=== PATIENT | female | born 1970 | race Caucasian/White ===

== ENCOUNTER → 2023-12-19 02:36 | Outpatient (CLI) | payer OTHER, SELFPAY ==
--- NOTE | 2023-12-19 08:30 | DI.MRI_ITS ---
Exam(s) MR LOWER JOINT RT WO EXAM: MR LOWER JOINT RT WO CLINICAL HISTORY: Lacy's cyst right knee M66.0 RUPTURE POPLITEAL CYST. TECHNIQUE: Multiplanar multisequence MRI was performed. COMPARISON: Exam interpreted without benefit of prior plain films. MR MR KNEE RT WO CONTRAST from 06/25/2019 US US EXTREMITY LOWER VENOUS RT from 05/25/2023 FINDINGS: BONES: There is no fracture or contusion pattern. Multiple degenerative cysts in the proximal tibia . Single cyst in proximal fibula. JOINTS: A small joint effusion is present. Articular cartilage: Patellofemoral joint: Denuding of the patellar cartilage extending down to and involving underlying bone.. It edema and degenerative subchondral cysts are present. Medial femoral tibial joint: Severe narrowing of the cartilage, extending down to involving underlyi ng bone. Lateral femoral tibial joint: Severe narrowing of cartilage extending down to bone in the lateral ti bial plateau. LIGAMENTS: Anterior Cruciate: Unremarkable. Posterior Cruciate: Unremarkable. Medial Collateral:Unremarkable. Lateral Collateral ligament complex: Unremarkable. TENDONS: Extensor mechanism: Unremarkable. Medial retinaculum: Unremarkable. Lateral retinaculum: Unremarkable. Popliteus: Unremarkable. MENISCI: The medial meniscus extremely diminutive and peripherally displaced horizontal tear through body. Po sterior horn extremely diminutive. Findings have significantly worsened compared with the previous exam. The lateral meniscus is extremely diminutive in the body and posterior horn. The findings have signi ficantly worsened when compared with the previous exam. MUSCLES: Edema within superior aspect of medial head of gastrocnemius muscle. SOFT TISSUES: Lacy's cyst with large inferior loculation measuring 15 cm in length by 8 cm AP by 6 c m transverse. It is located adjacent to the medial head of the gastrocnemius muscle. Lacy's cyst w as demonstrated on prior ultrasound however it has increased in size. Edema in the subcutaneous fat. Heterogeneous material within could represent proteinaceous debris or sequela of prior hemorrhage. IMPRESSION: Large Lacy's cyst with large inferior loculation on containing on debris which may be result of prio r hemorrhage. Severe degenerative changes of the femoral tibial and patellofemoral joints with cartilage thinning e xtending down to bone. Severe degenerative changes in the menisci. No ligament or tendon tear. DATA REPOSITORY:
== END ==
PROVIDERS: PCP Internal Medicine; Visit Provider Student in an Organized Health Care Education/Training Program
DX: M66.0 Rupture of popliteal cyst (principal)
CPT/HCPCS: 73721

== ENCOUNTER 2024-03-19 11:44 | Outpatient (CLI) | payer OTHER, SELFPAY ==
--- NOTE | 2024-03-19 09:32 | DI.RAD_ITS ---
Exam(s) XR STANDING ALIGNMENT XR KNEE RT 1V EXAM: XR STANDING ALIGNMENT and XR knee RT 1 V CLINICAL HISTORY: surgical planning. TECHNIQUE: 2D digital imaging was performed. Five images were obtained. COMPARISON: MR MR LOWER JOINT RT WO from 12/19/2023 FINDINGS: BONES: The hips are well maintained. Subchondral cysts are seen in the proximal right tibia. There is joint space narrowing seen predominantly in the femoral tibial joint in the right knee. There is a joint effusion present. In the left knee, there is joint space narrowing and osteophytes particula rly in the medial femoral tibial joint. The ankles are well maintained.There is no significant leg l ength discrepancy. SOFT TISSUE: Normal. IMPRESSION: Arthrosis of the knees bilaterally. Right knee joint effusion. DATA REPOSITORY: RADIATION DOSE DELIVERED:
== END 2024-03-19 11:45 | disposition home or self-care (01) ==
LOC: DIORS 11:44
PROVIDERS: PCP Internal Medicine; Visit Provider Physician Assistant
DX: M17.0 Bilateral primary osteoarthritis of knee (principal)
CPT/HCPCS: 73560; 77073

== ENCOUNTER 2024-04-20 01:47 | Outpatient (CLI) | payer OTHER, SELFPAY ==
[2024-04-20 10:34] LABS: HCT 37.8 % (36.0-46.0); MCH 30.8 pg (27.0-33.0); MCHC 31.7 % (32.0-36.0); MCV 97 fL (80-95); MPV 9.8 fL (8.0-11.0); Platelet Count 321 10^3/uL (130-400); RBC 3.89 10^6/uL (3.93-5.22); RDW 15.8 % (11.7-14.6); RDW-SD 56.4 fL; WBC 11.73 10^3/uL (4.4-10.8)
[2024-04-20 10:55] LABS: Anion Gap 9.1 mmol/L (3-11); BUN 10 mg/dL (7-18); CO2 28.9 mmol/L (21.0-32.0); CREATININE 1.1 mg/dL (0.55-1.02); Calcium 9.1 mg/dL (8.5-10.1); Chloride 102 mmol/L (98-107); Estimated GFR 60.46 (mL/min/1.73m2); Glucose 145 mg/dL (74-106); Potassium 4.1 mmol/L (3.5-5.1); Sodium 140 mmol/L (136-145)
== END 2024-04-20 01:48 | disposition home or self-care (01) ==
LOC: LBO 01:47
PROVIDERS: PCP Internal Medicine; Visit Provider Student in an Organized Health Care Education/Training Program
DX: M17.11 Unilateral primary osteoarthritis, right knee (principal); Z01.818 Encounter for other preprocedural examination
CPT/HCPCS: 36415; 80048; 85027

== ENCOUNTER 2024-05-02 06:59 | Day surgery (SDC) | payer OTHER, SELFPAY ==
[2024-05-02] VITALS (27 sets, daily range): BP systolic 92–138; BP diastolic 41–63; PULSE 61–92; RESP 10–18; TEMP 36–36.4; O2SAT 93–100; BMI 28.8
--- NOTE | 2024-05-02 06:47 | W.ANESPRE ---
General Info Date of Service Date Performed: 05/02/24 Height: 5 ft 7.75 in Weight: 85.275 kg Body Mass Index (BMI): 28.8 Surgical Procedure: Operation Date: 05/02/24 09:10 Proposed Procedure Side Surgeon p Knee Total Arthroplasty, Cemented CR Right Issac Arango MD Meds Allergies and Home Medications Allergies Allergy/AdvReac Type Severity Reaction Status Date / Time No Known Allergies Allergy Verified 05/02/24 07:18 Home Medication ?Medication ?Instructions ?Recorded albuterol sulfate 90 mcg/actuation 1 inh inhalation Q4H PRN 06/22/23 aerosol inhaler valacyclovir 1 gram tablet 1,000 mg PO BID 06/22/23 sulfasalazine 500 mg 0.5 g PO BID 03/19/24 tablet,delayed release acetaminophen 500 mg tablet 1,000 mg (2 x 500 mg) PO TID #90 05/02/24 tabs aspirin 81 mg tablet,delayed 81 mg PO BID #60 tabs 05/02/24 release celecoxib 200 mg capsule 200 mg PO BID #60 caps 05/02/24 dexamethasone 4 mg tablet 4 mg PO DAILY #2 tabs 05/02/24 gabapentin 300 mg capsule 300 mg PO QHS #14 caps 05/02/24 oxycodone 5 mg tablet 5 mg PO Q4H PRN pain #20 tabs 05/02/24 pantoprazole 40 mg tablet,delayed 40 mg PO DAILY #30 tabs 05/02/24 release Current Visit Medications: Current Medications Generic Name Dose Route Start Last Admin Trade Name Freq PRN Reason Stop Dose Admin Acetaminophen 1,000 mg 05/02/24 06:00 Acetaminophen 500 Mg Tab PO 05/02/24 23:59 PREOP BATSHEVA Celecoxib 400 mg 05/02/24 06:00 Celecoxib 200 Mg Cap PO 05/02/24 23:59 PREOP BATSHEVA Gabapentin 300 mg 05/02/24 06:00 Gabapentin 300 Mg Cap PO 05/02/24 23:59 PREOP BATSHEVA Ringer's Solution 1,000 mls @ 80 mls/hr 05/02/24 06:00 IV 05/02/24 23:59 INFUSION BATSHEVA Cefazolin Sodium/Dextrose 2 gm in 50 mls @ 100 mls/hr 05/02/24 06:00 Ancef Duplex IVPB 05/02/24 23:59 PREOP BATSHEVA Tranexamic Acid 1,000 mg/ 110 mls @ 660 mls/hr 05/02/24 06:00 Sodium Chloride IVPB 05/02/24 23:59 PREOP BATSHEVA IV Miscellaneous Supplies 1 each 05/02/24 06:00 Iv Access IV 05/02/24 23:59 DIRECTED BATSHEVA Sodium Chloride 0 ml 05/02/24 06:00 Normal Saline Flush 10 Ml Syr IV 05/02/24 23:59 PRN PRN Sodium Chloride 0 ml 05/02/24 06:00 Normal Saline 10 Ml Vial IJ 05/02/24 23:59 DIRECTED PRN Sterile Water 0 ml 05/02/24 06:00 Water,Injection,Sterile 10 Ml Vial IJ 05/02/24 23:59 DIRECTED PRN PFSH Active Problems Active Problems: Problem Status Onset Code Osteoarthritis of right knee Acute M17.11 Lacy's cyst, ruptured Acute M66.0 Psoriatic arthritis Acute L40.50 Psoriasis Chronic L40.9 Prediabetes Acute R73.03 Nicotine dependence Acute F17.200 Malignant tumor of cervix Acute C53.9 Medical History Medical History Leukocytosis Surgical History Surgical History H/O LEEP Previous back surgery 06/06/04 H/O arthroscopy of knee 09/25/21 Tobacco Smoking/Tobacco Use Status: Former Tobacco Use Alcohol Alcohol Intake: current Alcohol intake frequency: 0-2 drinks per day Alcohol type: wine Substance Use Substance use: Never Substance use type: does not use Vital Signs and Lab Results Vital Signs Most Recent Vital Signs in EMR: Temp Pulse Resp BP Pulse Ox 36.3 C L 78 18 138/63 99 05/02/24 07:10 05/02/24 07:10 05/02/24 07:10 05/02/24 07:10 05/02/24 07:10 Lab Results Blood Type / Crossmatch: No Data to Display Complete Blood Count: White Blood Count 11.73 10^3/uL (4.4-10.8) H 04/20/24 10:28 Red Blood Count 3.89 10^6/uL (3.93-5.22) L 04/20/24 10:28 Hemoglobin 12.0 g/dL (11.2-15.7) 04/20/24 10:28 Hematocrit 37.8 % (36.0-46.0) 04/20/24 10:28 Platelet Count 321 10^3/uL (130-400) 04/20/24 10:28 Complete Metabolic Panel: Sodium 140 mmol/L (136-145) 04/20/24 10:28 Potassium 4.1 mmol/L (3.5-5.1) 04/20/24 10:28 Chloride 102 mmol/L (98-107) 04/20/24 10:28 Carbon Dioxide 28.9 mmol/L (21.0-32.0) 04/20/24 10:28 BUN 10 mg/dL (7-18) 04/20/24 10:28 Creatinine 1.1 mg/dL (0.55-1.02) H 04/20/24 10:28 Est GFR (CKD-EPI 2020) 60.46 (mL/min/1.73m2) 04/20/24 10:28 Calcium 9.1 mg/dL (8.5-10.1) 04/20/24 10:28 Glucose 145 mg/dL (74-106) H 04/20/24 10:28 Liver Function Panel: No Data to Display Coagulation Panel: No Data to Display Cardiac Panel: No Data to Display Arterial Blood Gas: No Data to Display Venous Blood Gas: No Data to Display Pancreas Panel: No Data to Display Thyroid Panel: No Data to Display Infectious Disease: No Data to Display Blood Cultures: No Data to Display Toxicology Panel: No Data to Display Panel: No Data to Display Anesthesia Assessment and Plan Anesthesia History Personal History: No History of Anesthesia Complications Family History: No Family History of Anesthesia Complications Exercise Tolerance Exercise Tolerance: Metabolic Equivalents>4 Pertinent Negatives Pertinent Negatives: No Symptoms of GERD, No Major Cardiovascular Symptoms or Complaints, No Major Pulmonary Symptoms or Complaints and No History of CVA/TIA Cardiac & Pulmonary Exam Cardiac Exam: Normal S1/S2 Heart Sounds Pulmonary Exam: Clear Bilateral Breath Sounds Implantable Cardiac Device Does patient have a Pacemaker or an ICD?: No Airway Exam Known Difficult Airway: No Mallampati Class: 2 Mouth Opening: Normal (> 3cm) Thyromental Distance: Greater than 3 cm Neck Range of Motion: Full ROM Neck Circumference: Normal Teeth Condition: Normal Dentition ASA Classification ASA Score: ASA 2 Emergency Case?: No NPO Status NPO Status: NPO Clears >2 hours, Solids >8 hours Status Status: Negative HCG Anesthesia Plan Resuscitation Status: Full Code Anesthesia Technique: Spinal Anesthesia Airway Planned: Natural Airway Pain Management: Surgeon and patient request nerve block Monitors Used: Standard Monitors Preoperative Comments:: 53 yo female for TKA. Sig PMHx: RAD (albuterol), psoriatic arthritis, PreDM, former smoker, occ EtOH.
--- NOTE | 2024-05-02 07:20 | W.PM.DSUDISC ---
Date of service: 05/02/24 Discharge Plan Disposition Patient Disposition: Home Condition: Good Discharge Details Reason For Visit: R TKR Attending Provider: Issac Arango Primary Care Provider: Makayla Davis Home Meds and New Rx's Prescriptions: New acetaminophen 500 mg tablet 1,000 mg PO TID Qty: 90 3RF aspirin 81 mg tablet,delayed release (DR/EC) 81 mg PO BID Qty: 60 0RF celecoxib 200 mg capsule 200 mg PO BID Qty: 60 0RF pantoprazole 40 mg tablet,delayed release (DR/EC) 40 mg PO DAILY Qty: 30 0RF dexamethasone 4 mg tablet 4 mg PO DAILY Qty: 2 0RF gabapentin 300 mg capsule 300 mg PO QHS Qty: 14 0RF oxycodone 5 mg tablet 5 mg PO Q4H MDD 6 tabs PRN (Reason: pain) Qty: 20 0RF Continued albuterol sulfate 90 mcg/actuation HFA aerosol inhaler 1 inh inhalation Q4H PRN valacyclovir 1 gram tablet 1,000 mg PO BID sulfasalazine 500 mg tablet,delayed release (DR/EC) 0.5 g PO BID Discharge Instructions Additional Instructions: Total Knee Discharge Instructions Activity: The most important activity is to walk and to work on gentle motion (both flexion and extension). You should try to take short walks a few times a day. It is important that when resting you work on keeping the knee straight. Avoid putting a pillow behind the knee as this will encourage flexion. Work on range of motion exercises as provided by Physical Therapy. - Start outpatient physical therapy within 2 weeks. - You should wear the MADAY hose on both legs for 2 weeks. You may remove these at night. You may also use any compression sock in place of the MADAY hose. - Utilize [employer] to review exercises, see videos on exercises and obtain basic information pertaining to your surgery and your recovery. Dressing: Remove the Néstor wrap by 2 days after your surgery and put on the MADAY stocking given to you from the hospital. Keep the surgical dressing (underneath the NÉSTOR wrap) in place for at least one week. After the first week it may be removed and replaced with light gauze and tape or nothing. The wound and dressing may get wet after 3 days but avoid soaking the dressing or otherwise it will need to be changed. Many people prefer covering the dressing with cling wrap (saran wrap) to minimize it from getting soaked. If it gets wet, just pat dry. If it starts to peel off then it will need to be changed. Medications: - You should take Tylenol and anti-inflammatory Celebrex as your primary pain control medications. If the Celebrex is too expensive or not covered, please call the office for another alternative (Advil/Ibuprofen or Naproxen/Aleve) - You have been prescribed a stronger pain medication Oxycodone for breakthrough pain, take as needed as prescribed. - You have also been prescribed a stomach acid reduction agent Pantoprozole to help reduce stomach acid and reflux. - You have been prescribed Gabapentin to take at night for restlessness and nerve pain. - You will be taking Aspirin 81mg twice a day for DVT prevention unless instructed otherwise. - You have also been prescribed Decadron to take to control post-operative nausea and pain. You will start this tomorrow. - If you have constipation you should take Colace or Miralax (both [id number]). It takes most people 3-4 days to have a bowel movement. Follow-up: 2 weeks If you have any acute concerns or questions, please do not hesitate to contact the office at [phone]. You may contact Dr. Arango with any questions after hours through the hospital at [phone] or on his cell phone at [phone]. Referrals: Issac Arango MD [ [facility] STAFF PHYSICIAN] - Equipment/Supplies: Walker Activity:: Activity as Tolerated Shower/Bathe:: 72 hours Diet:: As Tolerated Discharge Orders Discharge Orders: Discharge Order (Routine); Ordered 05/02/24 Ordered By: Tor Rose DS: Diagnosis Discharge Diagnosis (1) Osteoarthritis of right knee: Status: Acute
[2024-05-02] MEDS: Celecoxib 200 MG CAP 400 MG PO (07:26)
[2024-05-02] MEDS: Gabapentin 300 MG CAP PO (07:26)
[2024-05-02] MEDS: Acetaminophen 500 MG TAB 1000 MG PO (07:26)
[2024-05-02] MEDS: Normal Saline 1,000 ML 80 ML IV (08:05)
--- NOTE | 2024-05-02 08:33 | W.ANESNERVE ---
Nerve Block Single Injection Procedure Date and Time Date Performed: 05/02/24 Procedure Start: 08:20 Location Where Procedure Performed Procedure Location: Day Surgery Unit Reason Performed: Postoperative Analgesia Requesting Provider: Issac Arango Timeout Performed Timeout Performed: Yes Monitoring Used ECG, Blood Pressure and SpO2 Sterility Sterility: Hand Hygiene, Surgical Cap, Surgical Mask, Sterile Gloves and Chlorhexidine Sedation Given During Procedure Sedation Given (Indicate Dose Given): Versed IV Dose:: 2 mg Patient Mental Status Patient Mental Status: Sedate with meaningful communication Nerve Block 1st Nerve Block: Laterality: Right Block Type: Adductor Canal Ultrasound Image Saved?: Yes Needle / Catheter Used: 100mm SonoPlex II Local Anesthetic Bolus (Indicate Dose Given): Lidocaine used for local infiltration of skin, Injected in 3-5ml increments after negative blood aspiration and Bupivacaine 0.25% Dose:: 12 mL Additives (Indicate Dose Given): None Ultrasound: Sterile probe cover and gel used Nerve Stimulator: Supplement to Ultrasound use and No twitch or parasthesia noted < 0.5 mA Paresthesia: None Procedure Tolerated: No Complications and Patient tolerated well Procedure Outcome: Successful Performed By: Gerardo Zuniga Supervised By: Ricardo Watkins
[2024-05-02] MEDS: ceFAZolin 2 GM/50 ML BAG IVPB (08:57)
[2024-05-02] MEDS: ePHEDrine 25 MG/5 ML Syringe IVP ×2 (11:11→11:22)
--- NOTE | 2024-05-02 11:29 | W.ANESPOSTOP ---
Postoperative Evaluation Date, Time and Location Date Performed: 05/02/24 Time Performed: 11:29 Patient Location: PACU Vital Signs Most Recent Imported Vital Signs: Most Recent Vital Signs Temp Pulse Resp BP Pulse Ox 36.4 C L 64 14 105/50 L 100 05/02/24 11:20 05/02/24 11:20 05/02/24 11:20 05/02/24 11:15 05/02/24 11:20 Pain Score Most Recent Pain Score: Most Recent Pain Score Pain Level 0 05/02/24 11:27 Assessment Mental Status: Awake (Alert & Oriented to Patient Baseline) Airway and Respiratory Function: Patent airway with normal (patient baseline) respiratory exam Cardiovascular Function: Hemodynamically Stable Hydration Status: Adequately Hydrated Nausea & Vomiting: No Nausea or Vomiting Pain: Pain is tolerable per patient Peripheral Nerve Block: Regional nerve block not resolved at time of post operative discharge
--- NOTE | 2024-05-02 13:28 | PT.INIE ---
PT Notes Visit Reasons: R TKR Physical Therapy Day Surgery Initial Evaluation Date: 05/02/2024 Referring Doctor: Dr Arango PT Orders: PT CONSULT: s/p Ortho surgery Precautions: WBAT RLE, TEDs x 2 weeks, activity as tolerated Patient Profile/Admitting Diagnosis: Pt is 53 yo female admitted for elective R TKA on 05/02/[address] Arango under spinal anesthesia. Post op uncomplicated. PMHX: Lacy's cyst, Psoriatic arthritis, psoriasis, prediabetes, malignant tumor of cervix, nicotine dependence Social History/Home Situation: Pt resides in 2 story home with 6 steps to enter and a FOS to her second floor bedroom and bathroom. She has a railing on both sets of stairs. She is independent with ADL, iADL, meal prep, cooking, cleaning. 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 She reports she is able to sit for her job. SHe drives. HHer bathroom on 2nd floor is elevated height , first floor is low 16 inches. Her partner fell yesterday resulting in Right shoulder injury( now in a sling) Equipment Owned/DME: Axillary crutches Subjective: Pt reports she is feeling good and ready to start moving Objective: General Observation: pt received semireclined on stretcher with cryocuff to right knee agreeable to participate in PT Mental Status: A+ O x 4, cooperative motivated Pain: 2/10 right knee ROM: Right Upper Extremity: WNL Left Upper Extremity: WNL Right Lower Extremity: WNL except knee 4-93 degrees active Left Lower Extremity: WNL Strength: Right Upper Extremity: 5/5 Left Upper Extremity:5/5 Right Lower Extremity:hip flexion 3-/5, extension 3-/5, abduction 3-/5, knee extension 3/5, knee flexion 2+/5, ankle 3/5, demonstrates quad set with no lag with 1 SLR in limited ROM Left Lower Extremity: 5/5 Sensation: intact Bed Mobility/Transfers: Supine to sit Independent Sit to stand SBA Stand to sit SBA Bed to chair SBA with crutches Gait: ambulate with axillary crutches with SBA 200 feet level surfaces including turns and obstacles. 3 point pattern stairs: 12 with rail and crutches in one hand SBA cue for sequencing descending Balance: Static Sitting: normal Dynamic Sitting: good Static Standing:good with UE support Dynamic Standing: good- with UE support Special Tests: Mobility Limitations Standardized Measure [facility] AM-PAC 6 clicks Basic Mobility Inpatient Short Form: Raw Score: 23 CMS Score: 11.20% Informed Consent/Education: Patient instructed in purpose of PT consult. Packet containing TKA exercise protocol has been given to patient. Education and training on initial set of exercises that can be done at home have been completed with patient. able to provide cues for sequencing on the stairs. Assessment: Patient is a 53 yo female presents with clinical signs and symptoms consistent with elective R TKA that have resulted in mobility limitations, gait instability, generalized weakness, and impairment of motor control as demonstrated by the following impairment level findings: 1. Decreased strength to right knee major muscle groups 2. Impaired standing balance 3. Limitation of joint range of motion in right knee Impairments are contributing to the following functional limitations: 1. Inability to safely ambulate without assistive device 2. Increase completion time for mobility ADL performance 3. Increased fall risk 4. difficulty performing stairs safely without assistance Patient is assessed as a low complexity based on the following: History: 53-year-old female with impairment level findings, functional limitations, and past medical history as indicated above Examination: Demonstrable impairment in strength, balance, and mobility level with underlying impairments and functional limitations as documented above Presentation: stable Decision Making: low Goals: N/A. Plan of Care/Treatment Plan: N/A. DISCHARGE RECOMMENDATIONS: Home with HEP and Outpatient PT as scheduled TREATMENT CODE/TIME: 09534 / [id number] Thank you for the opportunity to participate in the care of this patient. Lisa David PT Please sign an return this page within 30 days if you agree with the above POC. Thank you! Physician Signature Date [facility]
--- NOTE | 2024-05-02 14:35 | ROE_ITS ---
Operative Note Operative Note PRE-OP DIAGNOSIS: Right Knee Inflammatory Arthritis POST-OP DIAGNOSIS: same PROCEDURE: Right Total Knee Replacement SURGEON: Issac Arango [employer]ION [employer]URE PROJECTIONIST APPRENTICE: Femi Rose ANESTHESIA TYPE: Spinal Refer to Anesthesia Record ESTIMATED BLOOD LOSS: 250 PATHOLOGY: none sent TOURNIQUET TIME: 0 COMPLICATIONS: None Patient was transported to: PACU Patient's condition: stable Implants: 1. Depuy Attune Cementless Cruciate Retaining Femoral Component, Size 6 Narrow 2. Depuy Attune Cementless Fixed Bearing Tibial Component, Size 5 3. Depuy Attune 6x6mm CR/FB Poly 4. Depuy Attune Patellar Component, Size 35 Indications: I have seen Makayla in clinic for symptoms of knee arthritis, confirmed with radiographic findings. She has exhausted nonoperative methods and was having significant limitations in daily function and desired better function and less pain. I discussed the technical details of a knee replacement. I explained the risks of the procedure to include, but not limited to, bleeding, infection, pain, stiffness, fracture, damage to nerves and vessels, damage to muscles and tendons, loosening, need for repeat procedure, blood clot and cardiopulmonary demise. Despite these risks, Makayla elected to proceed. Findings: There was diffuse, inflammatory synovitis throughout the knee. There is abundant fluid within the knee with areas of bone and cartilage particulate. There is global arthritic change seen in the knee, worse over the medial side. There is a large cyst seen in the anterior lateral tibia and a smaller one in the posterior medial tibia. These each had the cystic ashley and good surrounding bone. The bone was otherwise in good condition and the cyst were packed with autograft bone. Procedure Description: Makayla was greeted in the preoperative holding area where the correct side was identified and marked. The consent was reviewed with the patient and signed. The history and physical was updated. All questions were answered. Preoperative medications were administered: Acetaminophen 1000mg, Celebrex 400mg, and Gabapentin 300mg. An adductor canal block was then administered by the anesthesia team in the [facility]. She was taken back to the operating room. A spinal anesthestic was then administered. The patient was placed into the supine position on the operating room table. Posts were placed for positioning during the procedure. All bony prominences were well padded. Prophylactic antibiotics in the form of Cefazolin were administered. 1g of Tranxemic Acid was given intravenously within 30 minutes of incision. The right leg was then prepped with Chloraprep and draped in a standard fashion with impervious stockinette. A second prep with Chloraprep was performed prior to application of Iodine impregnated skin protection. A timeout to confirm correct identity, side and site, procedure, allergies, anesthesia, and medical concerns was performed. With the knee in some flexion, a midline incision was made overlying the knee. Full thickness skin flaps were raised once the extensor mechanism was encountered. These were raised medially and laterally. Any bleeding was controlled with electrocautery. Once the extensor mechanism was fully exposed, a medial parapatellar arthrotomy was performed in a flexed position. There was abundant fluid which was evacuated at this time. This fluid also had particulate, likely pieces of bone and cartilage. All bleeding from the arthrotomy and the geniculate arteries was coagulated. An aggressive synovectomy was then performed removing all diseased synovium throughout the knee. A medial subperiosteal peel was performed with electrocautery to the midcoronal plane. The fat pad was removed while keeping the patellar tendon protected. The ACL and PCL were resected and the anterior horn of the lateral meniscus was transected. The knee was then flexed with the patella everted. Using a step drill, and based on preoperative templating, the femoral canal was entered. This was done with a step drill without any difficulty. The intramedullary distal femoral cut guide was inserted, set to a 6 degree valgus cut and 9mm cut thickness. The distal femoral cut guide was then held in p osition and pinned. With the soft tissues protected, the distal cut was performed. This was passed over a few times to ensure a planar cut. I then turned attention to the tibia. The extramedullary guide was placed onto the leg. The distal aspect was slid medial to adjust for position of center of ankle and stay in line with shaft of the tibia. Approximately 3-5 degrees of posterior slope was kept in the proximal cutting guide. The center of the guide was aligned with the PCL. The stylus was used to assess cut thickness. The medial side, most involved side, was set for a 4mm cut. This was then held in position and pinned into place with 2 additional pins and a cross pin for stability. The medial and lateral collateral ligaments were protected and the cut was performed. With this completed, it was assessed and noted to be of appropriate dimensions. The guide was removed. There was a large cyst seen within the anterior lateral aspect of the tibia. The cystic contents were removed with a rongeur and curette. The cystic capsule was also removed. The surrounding bone was of good health. It was of good density and there is no pathology to the bone itself. A smaller cys tic structure seen in the posterior medial aspect of the tibia which was also prepared in a similar fashion. A spacer block was inserted and the knee was brought into extension. The 6mm spacer block provided full extension, without hyperextension and with stability of both the medial and lateral collateral ligaments was assessed. The pins from the femur and the tibia were then removed. The distal femur was then sized. The anterior stylus was placed onto the lateral ridge of the anterior femur. This indicated a size 6 narrow femur. The external rotation of the guide was adjusted to 5 degrees to match the epicondylar axis, perpendicular to Taylor?s line. The 4-in-1 cutting guide was the placed. The posterior medial femur cut was evaluated and appeared of good thickness. The spacer block was inserted underneath the cutting guide and stability was confirmed in 90 degrees of flexion. An svetlana wing was used to confirm appropriate position of the anterior cut to avoid notching. This cutting guide was ensured to be flush on the cut surface and then pinned into place with headed pins. While protecting the soft tissues, quad tendon, and collateral ligaments, the anterior and posterior cuts were performed with a saw. The central two pins were removed and the posterior and anterior chamfers were cut next. The notch-cutting guide was placed. This was pinned to lateralize the femoral component as much as possible while keeping it flush on the cut surface. This was then pinned into position. A reciprocating saw was used to make the notch cut. A rasp smoothed the cut surfaces. The medial and lateral menisci were removed. A trial femoral component was then inserted, impacted down to the cut surfaces, and the lug holes were drilled. A provisional trial tibial component was placed and the knee was brought through range of motion. There was noted to be excellent extension and flexion. There was no significant instability. The patella was tracking without thumbs. A size 6mm polyethylene component provided the best range of motion and stability with less than 2mm gapping with medial and lateral stress and full extension without significant hyperextension. The tibial cut surface was fully exposed. The tibia was then sized as a 5. The tibia had been previously marked during trialing to correspond to the center of the tibial component to help with rotation. The trial was aligned to this femi, approximately rotated to the medial 1/3rd of the tibial tubercle. The trial was pinned into place. The tibia was prepared with a reamer and a keel punch and lug holes. Bone from the previous cuts as well as from the punch and drilling of the lug holes was saved and utilized to graft the cystic areas. I utilized this bone and placed it in manually pressurized with into the anterior lateral tibial cyst. This was done until the area was flush with the surrounding tibial plateau. This was simply done for the posterior medial cyst which was much s maller. The knee was then brought into extension and the patella was measured as 22mm. Using the patellar clamp and cut guide, this was resected to a flat surface with at least 13mm of thickness remaining. The size 35 patella fit the best. This was oriented and then clamped into position. The lugs were drilled. The trial components were removed. The final components were opened on the back table. The periosteal and capsular tissues, especially posteriorly, around the knee were then systematically injected with a periarticular cocktail consisting of 246mg of Ropivacaine, 0.5mg of Epinephrine, 0.08mg of Clonidine, and 30mg of Ketorolac, diluted to 100cc. On the back table, with the implants opened, the cement was mixed. One batch of high viscosity cement was prepared with vacuum assistance. After the cement was ready a small amount was placed on the cut surface of the patella and the patellar button was clamped into position and held. While the cement was hardening, the cementless knee components were placed. Starting with the tibial component, the tibia was subluxed anteriorly and the lug holes of the component were lined up as well as the cruciate stem. Bone graft within the cyst was still packed in good position. The tibia was then impacted with an impactor and mallet until the tibial component was in contact with the tibia. This was done methodically and slowly to ensure there is no fracture of the tibia given the cystic change. Then, the femoral component was inserted. The final polyethylene component was inserted. The lug holes were aligned and the component was impacted into position. The knee was irrigated with Surgiphor Betadine solution. This was allowed to sit in the knee for 3 minutes and then it was irrigated out with saline. After the cement had finally cured, approximately 15min, the clamp was removed from the patella and the knee was taken through range of motion. The patella was tracking with a no-thumbs technique. The capsule was then reapproximated with a No. 1 Vicryl at multiple locations. The capsule was finally closed with a No. 2 Stratafix, barbed suture. The second dosing of 1g TXA was started. Deep tissues were then reapproximated with 0 Vicryl and 2-0 Vicryl. The skin was closed with a running 3-0 Monocryl in a subcuticular fashion. This was reinforced with skin glue. A Mepilex silver dressing was applied along with a [id number] LARRY wrap. A CryoCuff was applied. Makayla was transferred to the hospital bed without difficulty an suffering no apparent complication. She has a good prognosis. Physical therapy will start today and without restrictions, weight-bearing as tolerated. Aspirin 81mg BID will be used for DVT prophylaxis. Date of Procedure: 05/02/24
== END 2024-05-02 13:12 | disposition home or self-care (01) ==
PROVIDERS: PCP Internal Medicine; Visit Provider Student in an Organized Health Care Education/Training Program
PROC: (CPT 27447; principal; 2024-05-02 09:00)
DX: M17.11 Unilateral primary osteoarthritis, right knee (principal); L40.50 Arthropathic psoriasis, unspecified; F17.210 Nicotine dependence, cigarettes, uncomplicated; G89.18 Other acute postprocedural pain; M25.561 Pain in right knee
CPT/HCPCS: 27447; 64447; 81025; 97161; C1776; J0665; J0690; J1100; J2250; J2371; J2401; J2405; J2704

== ENCOUNTER 2024-05-14 15:19 | Outpatient (CLI) | payer OTHER, SELFPAY ==
--- NOTE | 2024-05-14 09:30 | DI.RAD_ITS ---
Exam(s) XR KNEE RT 1V EXAM: XR KNEE RT 1V CLINICAL HISTORY: 1ST POST OP S/P R TKA. TECHNIQUE: 2D digital imaging was performed. COMPARISON: CR XR KNEE RT 1V from 03/19/2024 FINDINGS: Single lateral view Satisfactory position alignment the components of the right knee prosthesis evident on this single la teral view. No fracture evident. No obvious loosening. No evidence of osteomyelitis IMPRESSION: Satisfactory appearance DATA REPOSITORY: RADIATION DOSE DELIVERED:
--- NOTE | 2024-05-14 09:30 | DI.RAD_ITS ---
Exam(s) XR STANDING ALIGNMENT EXAM: XR STANDING ALIGNMENT CLINICAL HISTORY: 1ST POST OP S/P R TKA. TECHNIQUE: 2D digital imaging was performed. COMPARISON: CR XR STANDING ALIGNMENT from 03/19/2024 FINDINGS: 3 views There has been interval placement a right knee prosthesis which appears satisfactory. Moderate degen erative changes in the medial compartment of the opposite-left knee are again noted. Unchanged. Hips appear unremarkable as do the sacroiliac joints. Ankles unremarkable. Bone density normal. No osseous lesions. IMPRESSION: Satisfactory appearance of right knee prosthesis. Moderate degenerative changes in the medial compartment of the opposite-left knee again noted, unchan ged. DATA REPOSITORY: RADIATION DOSE DELIVERED:
== END 2024-05-14 15:20 | disposition home or self-care (01) ==
LOC: DIORS 15:19
PROVIDERS: PCP Internal Medicine; Visit Provider Student in an Organized Health Care Education/Training Program
DX: Z96.651 Presence of right artificial knee joint (principal); Z47.1 Aftercare following joint replacement surgery
CPT/HCPCS: 73560; 77073

== ENCOUNTER 2025-05-06 13:02 | Outpatient (CLI) | payer BC, SELFPAY ==
--- NOTE | 2025-05-06 09:15 | DI.RAD_ITS ---
Exam(s) XR KNEE RT 2V AP,LAT EXAM: XR KNEE RT 2V AP,LAT CLINICAL HISTORY: ANNUAL F/U R TKA. TECHNIQUE: 2D digital imaging was performed. COMPARISON: CR XR KNEE RT 1V from 05/14/2024 FINDINGS: Two views Satisfactory position alignment of the components of the prosthesis. No obvious fracture or loosening evident. No evidence of osteomyelitis. IMPRESSION: Stable satisfactory appearance DATA REPOSITORY: RADIATION DOSE DELIVERED:
== END 2025-05-06 13:03 | disposition home or self-care (01) ==
LOC: DIORS 13:02
PROVIDERS: PCP Internal Medicine; Visit Provider Student in an Organized Health Care Education/Training Program
DX: Z96.651 Presence of right artificial knee joint (principal)
CPT/HCPCS: 73560